=== PATIENT | male | born 1960 | race Caucasian/White ===

== ENCOUNTER 2019-10-06 12:48 | Outpatient (CLI) | payer BC ==
--- NOTE | 2019-10-06 14:15 | ULT ---
VENOUS DOPPLER ULTRASOUND OF THE RIGHT LOWER EXTREMITY: 10/06/19 HISTORY: Right lower extremity pain and edema. TECHNIQUE: Rachel scale, color flow and spectral Doppler imaging of the deep venous system of the right lower extr emity is performed. FINDINGS: There is good flow, compression, and augmentation noted in the right common femoral, femoral, deep fe moral, popliteal, posterior tibial, peroneal and greater saphenous veins. IMPRESSION: No evidence of DVT in the right lower extremity. POS: OFF
== END 2019-10-06 12:49 | disposition home or self-care (01) ==
LOC: ULT 12:48
PROVIDERS: ATTEND Family Medicine
DX: M79.604 Pain in right leg (principal)

== ENCOUNTER 2021-09-02 10:21 | Outpatient (CLI) | payer BC | END 2021-09-02 10:22 | disposition home or self-care (01) | LOC: BICULT 10:21 | PROVIDERS: ATTEND Family Medicine | DX: I80.01 Phlebitis and thrombophlebitis of superficial vessels of right lower extremity (principal); I82.811 Embolism and thrombosis of superficial veins of right lower extremity ==

== ENCOUNTER 2021-09-05 12:19 | Outpatient (CLI) | payer BC | END 2021-09-05 12:20 | disposition home or self-care (01) | LOC: BICULT 12:19 | PROVIDERS: ATTEND Family Medicine | DX: N18.2 Chronic kidney disease, stage 2 (mild) (principal) | CPT/HCPCS: 76770 ==